=== PATIENT | female | born 1995 | race American Indian/Alaskan Native ===

== ENCOUNTER 2017-12-23 20:43 | Emergency (ER) | payer MEDICAID, OTHER ==
[2017-12-23 20:43] VITALS: BMI 52.9
[2017-12-23 20:55] VITALS: BP 138/83; RESP 20; O2SAT 100
[2017-12-23] MEDS ORDERED: Clindamycin 300 MG in Sodium Chloride 0.9% 50 ML IVPB STA (21:24)
[2017-12-23] MEDS ORDERED: Lidocaine 2% w Epi 1:100,000 Inj IJ ONE ×2 (21:38→21:44)
[2017-12-23 22:05] LABS: VENOUS BLOOD GAS PCO2 50 mmHg (40-60); VENOUS BLOOD GAS PO2 29 mm/Hg (30-55)
[2017-12-23 22:10] LABS: BASO # 0.1 K/uL (0.0-0.2); BASO % 0.7 % (0.0-2.0); EOS % 0.2 % (0.0-4.0); HEMOGLOBIN 11.7 g/dL (12.0-16.0); LYMPH # 2.2 K/uL (1.0-4.3); LYMPH % 13.7 % (20.0-40.0); MEAN CELL VOLUME 78.5 fl (81.0-99.0); MEAN CORPUSCULAR HEMOGLOBIN 25.1 pg (27.0-31.0); MEAN PLATELET VOLUME 9.3 fl (7.2-11.7); MONO # 1.2 K/uL (0.0-0.8); MONO % 7.5 % (0.0-10.0); NEUT # 12.3 K/uL (1.8-7.0); NEUT % 77.9 % (50.0-75.0); NRBC % 0.1 % (0.0-0.0); RBC 4.66 Mil/uL (3.80-5.20); RED CELL DISTRIBUTION WIDTH 13.5 % (11.5-14.5); WHITE BLOOD COUNT 15.7 K/uL (4.8-10.8)
[2017-12-23 22:16] LABS: ALB/GLOB RATIO 1.1 (1.0-2.1); ALBUMIN 4.3 g/dL (3.5-5.0); ALT/SGPT 46 U/L (9-52); AST/SGOT 35 U/L (14-36); BLOOD UREA NITROGEN 11 mg/dl (7-17); CALCIUM 8.9 mg/dL (8.4-10.2); GFR AFRICAN-AMERICAN > 60; GFR NON-AFRICAN AMERICAN > 60
[2017-12-23] MEDS ORDERED: Povidone Iodine Oint 10% Foilpak UD ONE (23:13)
--- NOTE | 2017-12-23 23:14 | ED PDOC ---
HPI: Skin/Bite Injury Time Seen by Provider: 12/23/17 20:59 Chief Complaint (Nursing): Abnormal Skin Integrity Chief Complaint (Provider): Abnormal Skin Integrity History Per: Patient History/Exam Limitations: no limitations Onset/Duration Of Symptoms: Days (x7) Current Symptoms Are (Timing): Still Present Additional Complaint(s): 22 y/o female presents to the ED complaining of a painful bump on the right mid- back, onset about one week ago. Patient also reports of a fever, onset today. Otherwise: (-) foreign body, (-) fever, (-) chills, (-) recent antibiotic use, (-) trauma, (-) injury, (-) urinary symptoms, (-) nausea, (-) vomiting, (-) other complaints. PMD: Blane Monterroso Past Medical History Reviewed: Historical Data, Nursing Documentation, Vital Signs Vital Signs: Last Vital Signs Temp 99.7 F H 12/24/17 00:00 Pulse 105 H 12/24/17 00:00 Resp 20 12/23/17 20:52 BP 138/83 12/23/17 20:52 Pulse Ox 100 12/23/17 23:35 - Medical History PMH: Asthma, Sleep Apnea Denies: Chronic Kidney Disease - Surgical History Surgical History: No Surg Hx - Family History Family History: States: Unknown Family Hx - Immunization History Hx Tetanus Toxoid Vaccination: No Hx Influenza Vaccination: No Hx Pneumococcal Vaccination: No - Home Medications Home Medications: Ambulatory Orders Medication Instructions Recorded Amoxicillin/Clavulanate [Augmentin 1 tab PO BID #14 tab 03/19/16 875 MG-125 MG] Clindamycin [Cleocin] 300 mg PO TID #30 cap 12/23/17 Ibuprofen [Motrin Tab] 600 mg PO QID PRN #20 tab 12/23/17 - Allergies Allergies/Adverse Reactions: Allergies Allergy/AdvReac Type Severity Reaction Status Date / Time No Known Allergies Allergy Verified 03/19/16 18:19 Review of Systems ROS Statement: Except As Marked, All Systems Reviewed And Found Negative Skin: Positive for: Other (painful bump on right mid-back) Physical Exam - Reviewed Nursing Documentation Reviewed: Yes Vital Signs Reviewed: Yes - Physical Exam Comments: GENERAL APPEARANCE: Patient is awake, alert, oriented x 3, in mild painful distress. Skin: warm and dry, (+) 4 x 4 cm erythmatous, tender, fluctuant abscess to the R mid back with surrounding cellulitis. Pulmonary: lungs clear, no rhonchi, no wheezing. Cardiac: regular rate and rhythm, no murmur, no gallop. Abdomen: soft, nontender. Extremities: no deformity, full range of motion, no tenderness. - Laboratory Results Result Diagrams: 12/23/17 21:55 12/23/17 21:55 - ECG O2 Sat by Pulse Oximetry: 100 (RA) Pulse Ox Interpretation: Normal Medical Decision Making Medical Decision Making: Time: 2200 Plan: -- Venous Blood Gas -- CMP -- CBC with differentials -- Cleocin 300 mg IV -- Toradol 30 mg IVP -- Tylenol 975 mg PO -- Wound cx -- Blood Culture -- IV Insertion -- I & D Labs reviewed : wbc 15, lactate 1.4. I&D performed by AB. Patient tolerated the procedure well. On re-evaluation, remains AAOx3, in no acute distress, not toxic appearing, T 99.7. Patient feels comfortable going home. Advised to follow up with primary care physician after 2 days without fail for wound check and packing removal Advised to take medication as prescribed. Return to the emergency room at any time for any new or worsening symptoms. Patient states she fully agrees with and understands discharge instructions. States that she agrees with the plan and disposition. Verbalized and repeated discharge instructions and plan. I have given the patient opportunity to ask any additional questions Scribe Attestation: Documented by Faisal Epps acting as a scribe for Linnette Santana PA-C. Provider Scribe Attestation: All medical record entries made by the Scribe were at my direction and personally dictated by me. I have reviewed the chart and agree that the record accurately reflects my personal performance of the history, physical exam, medical decision making, and the department course for this patient. I have also personally directed, reviewed, and agree with the discharge instructions and disposition. Disposition - Clinical Impression Clinical Impression: Abscess or cellulitis of back - Patient ED Disposition Is Patient to be Admitted: No Counseled Patient/Family Regarding: Studies Performed, Diagnosis, Need For Followup, Rx Given - Disposition Disposition: Routine/Home Disposition Time: 23:30 Condition: STABLE Additional Instructions: Thank you for letting us take care of you today. You were treated for abscess with cellulitis. The emergency medical care you received today was directed towards the acute presenting symptoms. If you were prescribed any medication, please fill it and give as directed. It may take several days for your symptoms to resolve. Return to the Emergency Department at any time if symptoms worsen, do not improve, or if any other problems arise. Please contact your doctor in 2 days for re-evaluation and follow up. Bring any paperwork you were given at discharge with you along with any medications to your follow up visit. Our treatment cannot replace ongoing medical care by a primary care provider (PCP) outside of the emergency department. Thank you for allowing the [facility] team to be part of your care today. 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 Procedures - Incision and Drainage Site: R mid back Blade Size: 11 I & D Procedure: betadine prep, sterile drapes applied, sterile dressing applied Progress: 20 cc's of purulent material expressed from abscess, wound packing inserted. Clean dressing applied. Patient tolerated the procedure well.
[2017-12-24 00:19] VITALS: PULSE 105; TEMP 99.7
== END 2017-12-24 00:05 | disposition home or self-care (01) ==
LOC: H.ER 20:43
DX: L02.212 Cutaneous abscess of back [any part, except buttock and flank] (principal)
CPT/HCPCS: 10060; 80053; 81025; 82803; 85025; 87040; 87070; 87181; 96374; 99283; J1885

== ENCOUNTER 2017-12-25 17:36 | Inpatient (IN) | payer OTHER ==
[2017-12-25 17:36] VITALS: BMI 52.9
[2017-12-25] MEDS ORDERED: Sodium Chloride 0.9% 1,000 ML IV STA (18:33)
[2017-12-25 19:11] LABS: BASO # 0.1 K/uL (0.0-0.2); BASO % 0.8 % (0.0-2.0); EOS # 0.1 K/uL (0.0-0.7); EOS % 1.6 % (0.0-4.0); HEMOGLOBIN 11.6 g/dL (12.0-16.0); LYMPH # 2.3 K/uL (1.0-4.3); MEAN CELL VOLUME 78.8 fl (81.0-99.0); MEAN CORPUSCULAR HEMOGLOBIN 25.4 pg (27.0-31.0); MEAN CORPUSCULAR HGB CONC 32.3 g/dL (33.0-37.0); MEAN PLATELET VOLUME 9.1 fl (7.2-11.7); MONO # 0.9 K/uL (0.0-0.8); MONO % 9.9 % (0.0-10.0); NEUT # 5.8 K/uL (1.8-7.0); NEUT % 62.7 % (50.0-75.0); RBC 4.58 Mil/uL (3.80-5.20); RED CELL DISTRIBUTION WIDTH 13.7 % (11.5-14.5); WHITE BLOOD COUNT 9.2 K/uL (4.8-10.8)
--- NOTE | 2017-12-25 19:12 | ED PDOC ---
Syncope/Near Syncope/Dizziness Time Seen by Provider: 12/25/17 18:19 Chief Complaint (Nursing): Syncope Chief Complaint (Provider): i passed out History Per: Patient History/Exam Limitations: no limitations Onset/Duration Of Symptoms: Hrs (2) Associated Symptoms Preceding Syncopal Episode: Lightheadedness Seizure Or Post-ictal Symptoms: None Fall Associated With With Symptoms: No Severity: Mild Additional Complaint(s): 22yo female c/o episode of passing out around 330p today, has felt dizzy and tactile fever today, had I&D of R back abscess 2 days ago, taking clindamycin. States still having pain and drainage from wound, packed. Denies Chest pain, SOB , abd pain, or vomiting. Past Medical History Reviewed: Historical Data, Nursing Documentation, Vital Signs Vital Signs: Last Vital Signs Temp 99.4 F 12/25/17 19:04 Pulse 87 12/25/17 17:57 Resp 20 12/25/17 17:57 BP 135/88 12/25/17 17:57 Pulse Ox 100 12/25/17 17:57 - Medical History PMH: Asthma, Sleep Apnea Denies: Chronic Kidney Disease Other PMH: obesity - Family History Family History: States: Unknown Family Hx - Living Arrangements Living Arrangements: With Family - Social History Current smoker - smoking cessation education provided: No - Immunization History Hx Tetanus Toxoid Vaccination: No Hx Influenza Vaccination: No Hx Pneumococcal Vaccination: No - Home Medications Home Medications: Ambulatory Orders Medication Instructions Recorded Amoxicillin/Clavulanate [Augmentin 1 tab PO BID #14 tab 03/19/16 875 MG-125 MG] Clindamycin [Cleocin] 300 mg PO TID #30 cap 12/23/17 Ibuprofen [Motrin Tab] 600 mg PO QID PRN #20 tab 12/23/17 - Allergies Allergies/Adverse Reactions: Allergies Allergy/AdvReac Type Severity Reaction Status Date / Time No Known Allergies Allergy Verified 12/25/17 17:57 Review of Systems Constitutional: Positive for: Chills ENT: Negative for: Nose Discharge Cardiovascular: Positive for: Light Headedness. Negative for: Chest Pain, Palpitations, Orthopnea Respiratory: Negative for: Cough, Shortness of Breath Gastrointestinal: Negative for: Nausea Musculoskeletal: Positive for: Back Pain. Negative for: Neck Pain, Shoulder Pain, Arm Pain Skin: Negative for: Rash, Lesions Neurological: Positive for: Weakness, Dizziness. Negative for: Numbness Psych: Negative for: Depression Physical Exam - Reviewed Nursing Documentation Reviewed: Yes Vital Signs Reviewed: Yes - Physical Exam Appears: Positive for: Well (obese), Non-toxic Head Exam: Positive for: ATRAUMATIC, NORMAL INSPECTION, NORMOCEPHALIC Skin: Positive for: Normal Color, Warm, DRY Eye Exam: Positive for: EOMI, Normal appearance, PERRL ENT: Positive for: Normal ENT Inspection Neck: Positive for: Normal, Painless ROM Cardiovascular/Chest: Positive for: Regular Rate, Rhythm Respiratory: Positive for: CNT, Normal Breath Sounds Gastrointestinal/Abdominal: Positive for: Soft, Tenderness (R back abscess packing in place +induration and erythema) Back: Positive for: Normal Inspection Extremity: Positive for: Normal ROM Neurologic/Psych: Positive for: Alert, Oriented - Laboratory Results Result Diagrams: 12/25/17 18:58 - ECG O2 Sat by Pulse Oximetry: 100 Medical Decision Making Medical Decision Making: workup for syncope with recent abscess I&D check labs, EKG, CT abd pelv to examine soft tissue abscess IVF bolus, court recording monitor, rectal temp cultures from 2 days ago reviewed, wound +Gm neg bacilli, blood cx negative Disposition - Clinical Impression Clinical Impression: Abscess, Syncope - Patient ED Disposition Is Patient to be Admitted: Transfer of Care - Disposition Disposition: Transfer of Care Disposition Time: 19:15 Condition: STABLE Forms: [employer] (Lao) Patient Signed Over To: James Carney Handoff Comments: pending labs, CT and dispo
--- NOTE | 2017-12-25 19:30 | ED PDOC ---
- Laboratory Results Result Diagrams: 12/25/17 18:58 12/25/17 18:58 - ECG O2 Sat by Pulse Oximetry: 100 Medical Decision Making Medical Decision Making: Time: 1899 --Patient is endorsed to provider by Dr. Pierre, pending lab and CT ABD/pelvis results. Time: 2038 --CT ABD/pelvis FINDINGS: Lung bases: Unremarkable. No mass. No consolidation. ABDOMEN: Liver: Unremarkable. No mass. Gallbladder and bile ducts: Unremarkable. No calcified stones. No ductal dilation. Pancreas: Unremarkable. No mass. No ductal dilation. Spleen: Unremarkable. No splenomegaly. Adrenals: Unremarkable. No mass. Kidneys and ureters: Unremarkable. No solid mass. No hydronephrosis. Stomach and bowel: Unremarkable. No obstruction. No mucosal thickening. PELVIS: Appendix: Normal appendix. Bladder: Unremarkable. No mass. Reproductive: Unremarkable as visualized. ABDOMEN and PELVIS: Intraperitoneal space: Unremarkable. No free air. No significant fluid collection. Bones/joints: No acute fracture. No dislocation. Soft tissues: Gas and information in the subcutaneous fat of the right flank. This measures approximately 3 cm in diameter. There is overlying skin thickening. Vasculature: Unremarkable. No abdominal aortic aneurysm. Lymph nodes: Scattered mesenteric and right lower quadrant lymph nodes which are within normal limits in size. IMPRESSION: Gas and information in the subcutaneous fat of the right flank. This measures approximately 3 cm in diameter. There is overlying skin thickening. Findings consistent with an abscess which is probably drained given the lack of a fluid filled cavity. ---- Time: 2113 --Upon re-evaluation, patient will be admitted given syncopal episodes in known setting of recent right flank abscess. In provider's opinion, near syncopal event in setting of gram negative rods seen in wound culture indicate patient requires IV Abx. Initial doses of IV Vanco and Gentamicin ordered. Case was discussed with Dr. Greenfield, covering for Dr. Monterroso. Patient made aware of results and agrees to plan. Clinical Impression: Right flank abscess Scribe Attestation: Documented by Karlie Sharif, acting as a scribe for James Carney MD. Provider Scribe Attestation: All medical record entries made by the Scribe were at my direction and personally dictated by me. I have reviewed the chart and agree that the record accurately reflects my personal performance of the history, physical exam, medical decision making, and the department course for this patient. I have also personally directed, reviewed, and agree with the discharge instructions and disposition Disposition Discussed With DrEsteban: Danyell Greenfield Counseled Patient/Family Regarding: Studies Performed, Diagnosis - Clinical Impression Clinical Impression: Abscess, Syncope - POA Present On Arrival: None - Disposition Disposition: Admitted as In-Patient Disposition Time: 20:00 Condition: STABLE
[2017-12-25] MEDS ORDERED: Gentamicin 100mg/100ml NS 100 MG/100 ML BAG IVPB STA (19:38)
[2017-12-25] MEDS ORDERED: Vancomycin 1 GM in Sodium Chloride 0.9% 100 ML IVPB STA (19:39)
[2017-12-25 19:51] LABS: ALB/GLOB RATIO 1.1 (1.0-2.1); ALBUMIN 4.1 g/dL (3.5-5.0); ALT/SGPT 55 U/L (9-52); AST/SGOT 44 U/L (14-36); BLOOD UREA NITROGEN 10 mg/dl (7-17); GFR NON-AFRICAN AMERICAN > 60
[2017-12-25] MEDS ORDERED: Sodium Chloride 0.9% 50 ML IV ONE (19:54)
[2017-12-25] MEDS ORDERED: Iohexol 300 100 ML IJ ONE (19:54)
[2017-12-25] MEDS ORDERED: Vancomycin 1 g Inj ONE (19:59)
[2017-12-26] MEDS ORDERED: Vancomycin 1 g Inj IVPB SCH (09:00)
[2017-12-26] MEDS: Enoxaparin 40 mg Syringe SC SCH (09:16)
--- NOTE | 2017-12-26 12:27 | CP.PCM.PCO ---
Assessment/Plan - Assessment/Plan Assessment (Free Text): Pt stable in bed, no acute distress. Patient reports she was in [facility] ED last Sunday for an abscess to her right flank area. States the abscess was drained and she was given oral antibiotics. Pt reports she was supposed to f/u with her PMD today to remove packing from wound but states she "fainted" yesterday and so decided to come to ED instead. Dressing to R flank noted to be soiled with old brownish drainage. Area surrounding the wound looks clean, no erythema noted. Packing removed, clean dry dressing applied. Dr. Greenfield made aware, surgery and ID consulted for further management.
--- NOTE | 2017-12-26 12:52 | CT ---
Date of service: 12/25/2017 PROCEDURE: CT Abdomen and Pelvis with contrast HISTORY: abscess R thoracic back, syncope COMPARISON: None. TECHNIQUE: Contrast dose: 100 mL Omnipaque 300 Radiation dose: Total exam DLP = 948 mGy-cm. This CT exam was performed using one or more of the following dose reduction techniques: Automated exposure control, adjustment of the mA and/or kV according to patient size, and/or use of iterative reconstruction technique. FINDINGS: LOWER THORAX: Unremarkable LIVER: Unremarkable. No gross lesion or ductal dilatation. GALLBLADDER AND BILE DUCTS: Unremarkable. PANCREAS: Unremarkable. No gross lesion or ductal dilatation. SPLEEN: Unremarkable. ADRENALS: Unremarkable. No mass. KIDNEYS AND URETERS: Unremarkable. No hydronephrosis. No solid mass. VASCULATURE: Unremarkable. No aortic aneurysm. BOWEL: Moderate stool retention. . No obstruction. No gross mural thickening. APPENDIX: No inflamed appendix is appreciated. No pericecal inflammatory changes are noted. A portion of the appendix is bleed identified and unremarkable in appearance PERITONEUM: Unremarkable. No free fluid. No free air. LYMPH NODES: Unremarkable. No enlarged lymph nodes. BLADDER: Unremarkable. REPRODUCTIVE: Bilateral adnexal hypodensities bleed most likely representing bilateral RA and physiological follicular cystic changes that on the left are slightly more pronounced these on the right. BONES: No acute fracture. Transitional elements at the right lumbosacral level suggested OTHER FINDINGS: -developmental variant. In the right posterior upper flank location the level of the hemidiaphragms and or just below that there is right post rolled lateral diffuse skin thickening in hyperdensity and deep to the skin thickening there is a Morpheus reticulation of the subcutaneous fat with sub mm coalescent gas surrounded by a a more cyst a amorphous subcutaneous inflammatory changes. A of spontaneous drained abscess and/or are concomitant panniculitis here and cellulitis or are compatible with this. This time no discrete drainable fluid like abscess is seen. This a amorphous subcutaneous areas estimated to be a between 3 and 4 cm in maximum width. No extension to the posterior right musculature is suggested. IMPRESSION: Right posterior upper flank skin thickening with subjacent subcutaneous inflammatory changes as referenced above. These findings may have represented a prior drained abscess with without panniculitis here and overlying cellulitis. Currently, no drainable fluid like collection suggested. Concordant results (preliminary interpretation) provided by [employer].
--- NOTE | 2017-12-26 13:25 | CP.PCM.CON ---
History of Present Illness - History of Present Illness History of Present Illness: General Surgery - Dr Ann 22yo F w/ right flank abscess s/p I&D in the ER 2 days ago, returned to ED today after episode of dizziness and pre-syncope while on her way to her PMD for packing removal. Pt states she was just not feeling right so decided to come to the ER instead. She underwent a CT abdomen/pelvis which showed cellulitis and no further drainable collection. Packing was removed by nurse practitioner on the floor. Pt states most of her pain in the R flank is improved but she still has some mild pain when palpated. She denies any nausea/ vomiting, fevers/chills. She was discharged home from the ER and continued Clindamycin as she was prescribed. Pt states this is the first time she's ever had an abscess. PMH: Asthma PSH: I&D R flank abscess All: Lactose Past Patient History - Infectious Disease Hx of Infectious Diseases: None - Past Medical History & Family History Past Medical History?: Yes - Past Social History Smoking Status: Never Smoked - CARDIAC Hx Cardiac Disorders: No - PULMONARY Hx Asthma: Yes Hx Sleep Apnea: Yes - NEUROLOGICAL Hx Neurological Disorder: No - HEENT Hx HEENT Problems: No - RENAL Hx Chronic Kidney Disease: No - ENDOCRINE/METABOLIC Hx Endocrine Disorders: No - HEMATOLOGICAL/ONCOLOGICAL Hx Blood Disorders: No - INTEGUMENTARY Hx Dermatological Problems: No - MUSCULOSKELETAL/RHEUMATOLOGICAL Hx Musculoskeletal Disorders: No Hx Falls: Yes - GASTROINTESTINAL Hx Gastrointestinal Disorders: No - GENITOURINARY/GYNECOLOGICAL Hx Genitourinary Disorders: No - PSYCHIATRIC Hx Psychophysiologic Disorder: No Hx Substance Use: No - SURGICAL HISTORY Hx Surgeries: No - ANESTHESIA Hx Anesthesia: No Meds Allergies/Adverse Reactions: Allergies Allergy/AdvReac Type Severity Reaction Status Date / Time lactose AdvReac Mild DIARRHEA Verified 12/26/17 12:54 - Medications Medications: Current Medications Enoxaparin Sodium (Lovenox) 40 mg SC DAILY YENNY PRN Reason: Protocol Last Admin: 12/26/17 09:16 Dose: 40 mg Ceftriaxone Sodium 1 gm/ (Sodium Chloride) 100 mls @ 100 mls/hr IVPB DAILY YENNY PRN Reason: Protocol Vancomycin HCl 1 gm/ Sodium (Chloride) 250 mls @ 166.667 mls/hr IVPB Q12 YENNY PRN Reason: Protocol Ketorolac Tromethamine (Toradol) 15 mg IVP Q6 PRN PRN Reason: Pain, moderate (4-7) Last Admin: 12/26/17 12:22 Dose: 15 mg Physical Exam - Constitutional Appears: Well, No Acute Distress - Head Exam Head Exam: ATRAUMATIC, NORMAL INSPECTION, NORMOCEPHALIC - Eye Exam Eye Exam: Normal appearance - Respiratory Exam Respiratory Exam: NORMAL BREATHING PATTERN. absent: Respiratory Distress - Cardiovascular Exam Cardiovascular Exam: REGULAR RHYTHM - GI/Abdominal Exam GI & Abdominal Exam: Soft. absent: Distended, Tenderness - Back Exam Additional comments: Right flank incision s/p I&D of abscess with induration, minimal erythema, some bloody drainage, no purulent drainage - Neurological Exam Neurological exam: Alert, Oriented x3 - Psychiatric Exam Psychiatric exam: Normal Affect, Normal Mood - Skin Skin Exam: Dry, Intact Results - Vital Signs Recent Vital Signs: Last Vital Signs Temp 98.8 F 12/26/17 08:33 Pulse 73 12/26/17 08:33 Resp 20 12/26/17 08:33 BP 127/85 12/26/17 08:33 Pulse Ox 99 12/26/17 08:33 - Labs Result Diagrams: 12/25/17 18:58 12/25/17 18:58 Labs: Laboratory Results - last 24 hr 12/25/17 12/25/17 18:58 18:58 WBC 9.2 RBC 4.58 Hgb 11.6 L Hct 36.1 MCV 78.8 L MCH 25.4 L MCHC 32.3 L RDW 13.7 Plt Count 275 MPV 9.1 Neut % (Auto) 62.7 Lymph % (Auto) 25.0 [place] % (Auto) 9.9 Eos % (Auto) 1.6 Baso % (Auto) 0.8 Neut # (Auto) 5.8 Lymph # (Auto) 2.3 [place] # (Auto) 0.9 H Eos # (Auto) 0.1 Baso # (Auto) 0.1 Sodium 142 Potassium 4.4 Chloride 106 Carbon Dioxide 25 Anion Gap 15 BUN 10 Creatinine 0.7 Est GFR ( Amer) > 60 Est GFR (Non-Af Amer) > 60 Random Glucose 95 Calcium 9.0 Total Bilirubin 0.5 AST 44 H D ALT 55 H Alkaline Phosphatase 58 Troponin I < 0.0120 Total Protein 7.9 Albumin 4.1 Globulin 3.8 Albumin/Globulin Ratio 1.1 Assessment & Plan - Assessment and Plan (Free Text) Assessment: 22yo F w/ R flank abscess s/p I&D on 12/23 -Packing removed, does not require further packing -Continue Abx as per ID -No surgical intervention needed -Pt discussed with Dr. Marissa Mason PGY4
--- NOTE | 2017-12-26 13:29 | CARD ---
APPROVED REPORT Date of service: 12/25/2017 EKG Measurement Heart [id number] <Conclusion> Normal sinus rhythm Moderate voltage criteria for LVH, may be normal variant Cannot rule out Septal infarct, age undetermined Abnormal ECG
--- NOTE | 2017-12-26 17:13 | CP.PCM.PN ---
Subjective - Date & Time of Evaluation Date of Evaluation: 12/26/17 Objective - Vital Signs/Intake and Output Vital Signs (last 24 hours): Temp Pulse Resp BP Pulse Ox 99 F 68 18 112/75 98 12/26/17 16:34 12/26/17 16:34 12/26/17 16:34 12/26/17 16:34 12/26/17 16:34 - Medications Medications: Current Medications Enoxaparin Sodium (Lovenox) 40 mg SC DAILY YENNY PRN Reason: Protocol Last Admin: 12/26/17 09:16 Dose: 40 mg Vancomycin HCl 1 gm/ Sodium (Chloride) 250 mls @ 166.667 mls/hr IVPB Q12 YENNY PRN Reason: Protocol Ceftriaxone Sodium 2 gm/ (Sodium Chloride) 100 mls @ 100 mls/hr IVPB DAILY YENNY PRN Reason: Protocol Ketorolac Tromethamine (Toradol) 15 mg IVP Q6 PRN PRN Reason: Pain, moderate (4-7) Last Admin: 12/26/17 12:22 Dose: 15 mg - Labs Labs: 12/25/17 18:58 12/25/17 18:58
--- NOTE | 2017-12-27 04:46 | CON ---
DATE: 12/26/2017 INFECTIOUS DISEASE CONSULT HISTORY OF PRESENT ILLNESS: The patient is a 22-year-old female who came to the emergency room two days prior to this trip to the emergency room. She had an I and D done on her right flank abscess. She returned yesterday after an episode of dizziness and presyncope, and she was on her way to her primary care physician for removal of the packing. She states that she was not feeling well, and she came to the ER instead. She underwent a CT of the abdomen and pelvis, which showed cellulitis and no further drainable collection. In the ER, she denied any nausea or vomiting, fever or chills. The patient is a morbidly obese female and states that this is the first time she had an abscess. She has NO history of hidradenitis suppurativa that she is aware of or that she could correspond to my questions regarding infections in axillary and inguinal areas and did once again state it was first time she had an abscess. PHYSICAL EXAMINATION: GENERAL: The patient is a pleasant female, alert, cooperative and oriented to time and place. HEENT: Within normal limits. NECK: Supple. LUNGS: Distant breath sounds, considering weight. ABDOMEN: Soft. Positive bowel sounds. ASSESSMENT AND PLAN: Has a pinpoint area, draining some serosanguineous fluid from the right flank. This was cultured on the hospital admission and found to be Proteus mirabilis. There is minimal erythema around the abscess, and there is some induration. The patient says she has minimal pain right now. At present time, I have reviewed the CT scan. We will continue the IV antibiotics of vancomycin and Rocephin and they are sensitive. Considering the size of the patient's 389 pounds, I have increased the Rocephin to 2 gm IV piggyback every 24 hours. Rodney Pelletier MD MTDTyrell
[2017-12-27 06:33] LABS: MEAN CELL VOLUME 78.6 fl (81.0-99.0); MEAN CORPUSCULAR HEMOGLOBIN 25.3 pg (27.0-31.0); MEAN CORPUSCULAR HGB CONC 32.2 g/dL (33.0-37.0); RBC 4.35 Mil/uL (3.80-5.20); RED CELL DISTRIBUTION WIDTH 13.8 % (11.5-14.5)
--- NOTE | 2017-12-27 07:55 | CP.PCM.PN ---
<Bernice Serrano - Last Filed: 12/27/17 07:53> Subjective - Date & Time of Evaluation Date of Evaluation: 12/27/17 Time of Evaluation: 07:53 - Subjective Subjective: General Surgery Dr. Ann Pt S&E @bedside. NAEO. pt has no complaints. pain improved. denies F/C, N/V. tolerating diet. Objective - Vital Signs/Intake and Output Vital Signs (last 24 hours): Temp Pulse Resp BP Pulse Ox 98.5 F 69 20 121/70 96 12/26/17 23:46 12/26/17 23:46 12/26/17 23:46 12/26/17 23:46 12/26/17 23:46 - Medications Medications: Current Medications Enoxaparin Sodium (Lovenox) 40 mg SC DAILY YENNY PRN Reason: Protocol Last Admin: 12/26/17 09:16 Dose: 40 mg Vancomycin HCl 1 gm/ Sodium (Chloride) 250 mls @ 166.667 mls/hr IVPB Q12 YENNY PRN Reason: Protocol Last Admin: 12/26/17 21:33 Dose: 166.667 mls/hr Ceftriaxone Sodium 2 gm/ (Sodium Chloride) 100 mls @ 100 mls/hr IVPB DAILY YENNY PRN Reason: Protocol Ketorolac Tromethamine (Toradol) 15 mg IVP Q6 PRN PRN Reason: Pain, moderate (4-7) Last Admin: 12/26/17 12:22 Dose: 15 mg - Labs Labs: 12/27/17 05:25 12/25/17 18:58 - Constitutional Appears: Non-toxic, No Acute Distress - Head Exam Head Exam: NORMAL INSPECTION - Eye Exam Eye Exam: Normal appearance - ENT Exam ENT Exam: Mucous Membranes Moist - Respiratory Exam Respiratory Exam: NORMAL BREATHING PATTERN. absent: Accessory Muscle Use, Respiratory Distress - Cardiovascular Exam Cardiovascular Exam: REGULAR RHYTHM. absent: Bradycardia, Tachycardia - GI/Abdominal Exam GI & Abdominal Exam: Soft. absent: Distended, Tenderness - Extremities Exam Extremities Exam: Normal Inspection - Back Exam Additional comments: flank incised abscess w/ serosanguinous drainage ~1cm diameter no fluctuance, induration. mild erythema - Neurological Exam Neurological Exam: Alert, Awake, Oriented x3 - Psychiatric Exam Psychiatric exam: Normal Affect, Normal Mood - Skin Skin Exam: Dry, Normal Color, Warm Assessment and Plan - Assessment and Plan (Free Text) Assessment: 22 y/o F w/ R flank abscess s/p drainage by ED on 12/21 - transition to PO abx - pain management - daily dressing changes + PRN - pt may shower - no surgical intervention - cleared for discharge pending evaluation by Dr. Ann Pt discussed w/ Dr. Marissa Serrano DO PGY3 <Renny Ann - Last Filed: 12/27/17 10:54> Subjective - Date & Time of Evaluation Time of Evaluation: 10:20 - Subjective Subjective: Patient was seen and examined at the bedside. Agree with resident's note above. Objective - Vital Signs/Intake and Output Vital Signs (last 24 hours): Temp Pulse Resp BP Pulse Ox 98.5 F 65 20 110/76 99 12/27/17 08:02 12/27/17 08:02 12/27/17 08:02 12/27/17 08:02 12/27/17 08:02 - Medications Medications: Current Medications Enoxaparin Sodium (Lovenox) 40 mg SC DAILY YENNY PRN Reason: Protocol Last Admin: 12/27/17 08:21 Dose: 40 mg Vancomycin HCl 1 gm/ Sodium (Chloride) 250 mls @ 166.667 mls/hr IVPB Q12 YENNY PRN Reason: Protocol Last Admin: 12/27/17 08:22 Dose: 166.667 mls/hr Ceftriaxone Sodium 2 gm/ (Sodium Chloride) 100 mls @ 100 mls/hr IVPB DAILY YENNY PRN Reason: Protocol Last Admin: 12/27/17 08:21 Dose: 100 mls/hr Ketorolac Tromethamine (Toradol) 15 mg IVP Q6 PRN PRN Reason: Pain, moderate (4-7) Last Admin: 12/26/17 12:22 Dose: 15 mg - Labs Labs: 12/27/17 05:25 12/25/17 18:58 Assessment and Plan - Assessment and Plan (Free Text) Plan: - No general surgery intervention at present time - General surgery will sign off - Please re-consult as needed
[2017-12-27] MEDS: cefTRIAXone 2 GM in Sodium Chloride 0.9% 100 ML IVPB SCH (08:21)
[2017-12-27] MEDS: Enoxaparin 40 mg Syringe SC SCH (08:21)
[2017-12-28] MEDS: cefTRIAXone 2 GM in Sodium Chloride 0.9% 100 ML IVPB SCH (08:39)
[2017-12-28] MEDS: Enoxaparin 40 mg Syringe SC SCH (08:39)
--- NOTE | 2017-12-28 09:22 | CP.PCM.HP ---
History of Present Illness - History of Present Illness History of Present Illness: A 22yo female c/o episode of passing out around 330p today, has felt dizzy and tactile fever today, had I&D of R back abscess 2 days ago, taking clindamycin. States still having pain and drainage from wound, packed. Denies Chest pain, SOB , abd pain, or vomiting. Surgery evaluated and recommended IV Abx. Present on Admission - Present on Admission Any Indicators Present on Admission: No Review of Systems - Review of Systems All systems: reviewed and no additional remarkable complaints except Past Patient History - Infectious Disease Hx of Infectious Diseases: None - Past Medical History & Family History Past Medical History?: Yes - Past Social History Smoking Status: Never Smoked - CARDIAC Hx Cardiac Disorders: No - PULMONARY Hx Asthma: Yes Hx Sleep Apnea: Yes - NEUROLOGICAL Hx Neurological Disorder: No - HEENT Hx HEENT Problems: No - RENAL Hx Chronic Kidney Disease: No - ENDOCRINE/METABOLIC Hx Endocrine Disorders: No - HEMATOLOGICAL/ONCOLOGICAL Hx Blood Disorders: No - INTEGUMENTARY Hx Dermatological Problems: No - MUSCULOSKELETAL/RHEUMATOLOGICAL Hx Musculoskeletal Disorders: No Hx Falls: Yes - GASTROINTESTINAL Hx Gastrointestinal Disorders: No - GENITOURINARY/GYNECOLOGICAL Hx Genitourinary Disorders: No - PSYCHIATRIC Hx Psychophysiologic Disorder: No Hx Substance Use: No - SURGICAL HISTORY Hx Surgeries: No - ANESTHESIA Hx Anesthesia: No Meds Allergies/Adverse Reactions: Allergies Allergy/AdvReac Type Severity Reaction Status Date / Time lactose AdvReac Mild DIARRHEA Verified 12/26/17 12:54 Physical Exam - Constitutional Appears: Well, No Acute Distress - Head Exam Head Exam: ATRAUMATIC, NORMAL INSPECTION, NORMOCEPHALIC - Eye Exam Eye Exam: EOMI, Normal appearance, PERRL Pupil Exam: NORMAL ACCOMODATION, PERRL - ENT Exam ENT Exam: Mucous Membranes Moist, Normal Exam - Neck Exam Neck exam: Positive for: Normal Inspection - Respiratory Exam Respiratory Exam: Clear to Auscultation Bilateral, NORMAL BREATHING PATTERN - Cardiovascular Exam Cardiovascular Exam: REGULAR RHYTHM, +S1, +S2 - GI/Abdominal Exam GI & Abdominal Exam: Normal Bowel Sounds, Soft, Tenderness Additional comments: Right Flank area I&D site. Culture takne from the wound - Extremities Exam Extremities exam: Positive for: normal inspection - Back Exam Back exam: NORMAL INSPECTION - Neurological Exam Neurological exam: Alert, CN II-XII Intact, Normal Gait, Oriented x3, Reflexes Normal - Psychiatric Exam Psychiatric exam: Normal Affect, Normal Mood - Skin Skin Exam: Dry, Intact, Normal Color, Warm Results - Vital Signs Recent Vital Signs: Last Vital Signs Temp 98.3 F 12/28/17 08:08 Pulse 62 12/28/17 08:08 Resp 20 12/28/17 08:08 BP 106/65 12/28/17 08:08 Pulse Ox 96 12/28/17 08:08 - Labs Result Diagrams: 12/27/17 05:25 12/25/17 18:58 - Imaging and Cardiology CT scan - abdomen Status: Report reviewed by me Additional comment: PROCEDURE: CT Abdomen and Pelvis with contrast HISTORY: abscess R thoracic back, syncope COMPARISON: None. TECHNIQUE: Contrast dose: 100 mL Omnipaque 300 Radiation dose: Total exam DLP = 948 mGy-cm. This CT exam was performed using one or more of the following dose reduction techniques: Automated exposure control, adjustment of the mA and/or kV according to patient size, and/or use of iterative reconstruction technique. FINDINGS: LOWER THORAX: Unremarkable LIVER: Unremarkable. No gross lesion or ductal dilatation. GALLBLADDER AND BILE DUCTS: Unremarkable. PANCREAS: Unremarkable. No gross lesion or ductal dilatation. SPLEEN: Unremarkable. ADRENALS: Unremarkable. No mass. KIDNEYS AND URETERS: Unremarkable. No hydronephrosis. No solid mass. VASCULATURE: Unremarkable. No aortic aneurysm. BOWEL: Moderate stool retention. . No obstruction. No gross mural thickening. APPENDIX: No inflamed appendix is appreciated. No pericecal inflammatory changes are noted. A portion of the appendix is bleed identified and unremarkable in appearance PERITONEUM: Unremarkable. No free fluid. No free air. LYMPH NODES: Unremarkable. No enlarged lymph nodes. BLADDER: Unremarkable. REPRODUCTIVE: Bilateral adnexal hypodensities bleed most likely representing bilateral RA and physiological follicular cystic changes that on the left are slightly more pronounced these on the right. BONES: No acute fracture. Transitional elements at the right lumbosacral level suggested OTHER FINDINGS: -developmental variant. In the right posterior upper flank location the level of the hemidiaphragms and or just below that there is right post rolled lateral diffuse skin thickening in hyperdensity and deep to the skin thickening there is a Morpheus reticulation of the subcutaneous fat with sub mm coalescent gas surrounded by a a more cyst a amorphous subcutaneous inflammatory changes. A of spontaneous drained abscess and/or are concomitant panniculitis here and cellulitis or are compatible with this. This time no discrete drainable fluid like abscess is seen. This a amorphous subcutaneous areas estimated to be a between 3 and 4 cm in maximum width. No extension to the posterior right musculature is suggested. IMPRESSION: Right posterior upper flank skin thickening with subjacent subcutaneous inflammatory changes as referenced above. These findings may have represented a prior drained abscess with without panniculitis here and overlying cellulitis. Currently, no drainable fluid like collection suggested. Concordant results (preliminary interpretation) provided by [facility]. Assessment & Plan (1) Abscess or cellulitis of back Assessment and Plan: IVF IV Vancomycin and Rocephin Pain Medication PRN Wound and Blood Culture Pending ID and surgery Onboard Status: Acute Priority: Medium
--- NOTE | 2017-12-28 09:23 | CP.PCM.PN ---
Subjective - Date & Time of Evaluation Date of Evaluation: 12/27/17 Time of Evaluation: 14:00 - Subjective Subjective: Wound Culture Grew Proteus which is pansensitive. Objective - Vital Signs/Intake and Output Vital Signs (last 24 hours): Temp Pulse Resp BP Pulse Ox 98.3 F 62 20 106/65 96 12/28/17 08:08 12/28/17 08:08 12/28/17 08:08 12/28/17 08:08 12/28/17 08:08 - Medications Medications: Current Medications Enoxaparin Sodium (Lovenox) 40 mg SC DAILY YENNY PRN Reason: Protocol Last Admin: 12/28/17 08:39 Dose: 40 mg Vancomycin HCl 1 gm/ Sodium (Chloride) 250 mls @ 166.667 mls/hr IVPB Q12 YENNY PRN Reason: Protocol Last Admin: 12/28/17 08:41 Dose: 166.667 mls/hr Ceftriaxone Sodium 2 gm/ (Sodium Chloride) 100 mls @ 100 mls/hr IVPB DAILY YENNY PRN Reason: Protocol Last Admin: 12/28/17 08:39 Dose: 100 mls/hr Ketorolac Tromethamine (Toradol) 15 mg IVP Q6 PRN PRN Reason: Pain, moderate (4-7) Last Admin: 12/26/17 12:22 Dose: 15 mg - Labs Labs: 12/27/17 05:25 12/25/17 18:58 Assessment and Plan (1) Abscess or cellulitis of back Assessment & Plan: IVF IV Vancomycin and Rocephin Pain Medication PRN Wound and Blood Culture Pending ID and surgery Onboard Status: Acute
--- NOTE | 2017-12-28 11:39 | CP.PCM.PCO ---
Assessment & Plan - Assessment and Plan (Free Text) Assessment: pt. doing well, denies fever, chills, n/v R flank abscess site scant serous drainage, no erythema or tenderness Pt. given rx for Bactrim DS 1 tab po q12 x 10 days as per recommendation instructed to f/u with pmd in 1 week and to return is fever, chills, increased drainage Above d/w Seman
[2017-12-28] MEDS ORDERED: Tmp-Smz 800 mg-160 mg DS Tab PO SCH (12:15)
[2017-12-28 15:57] VITALS: BP 128/70; PULSE 75; RESP 19; TEMP 98.2; O2SAT 95
--- NOTE | 2018-01-04 08:26 | PQF ---
PROVIDER RESPONSE TEXT: Morbid Obesity REVIEWER QUERY TEXT: Clarification of Clinical Diagnostic Findings In agreement with the BMI:52.8? as listed in the EMR OR: Disagree EMR: 6 ft 389lb 12/26 Draft ID consult: The patient is a morbidly obese female . The patient's Clinical Indicators include: xxxx Query created by: Kaylene Llamas on 12/28/2017 12:14 PM Electronically signed by: Danyell Greenfield MD 01/04/2018 8:23 AM
== END 2017-12-28 17:55 | disposition home or self-care (01) | DRG 278 ==
LOC: H.ER 17:36 → H.ERHOLD 21:08 → H.MEDSURG1 22:48
PROVIDERS: ADMIT Internal Medicine; ATTEND Internal Medicine
DX: L02.212 Cutaneous abscess of back [any part, except buttock and flank] (principal); L03.312 Cellulitis of back [any part except buttock and flank]; E66.01 Morbid (severe) obesity due to excess calories; Z68.43 Body mass index [BMI] 50.0-59.9, adult; Z98.890 Other specified postprocedural states; J45.909 Unspecified asthma, uncomplicated; G47.30 Sleep apnea, unspecified

== ENCOUNTER 2018-06-25 17:06 | Emergency (ER) | payer MEDICAID, OTHER ==
[2018-06-25 17:07] VITALS: BMI 52.9
[2018-06-25 17:43] VITALS: O2SAT 98
--- NOTE | 2018-06-25 18:16 | ED PDOC ---
HPI: Abdomen Time Seen by Provider: 06/25/18 17:50 Chief Complaint (Nursing): Abdominal Pain Chief Complaint (Provider): abdominal pain and umbilical drainage History Per: Patient History/Exam Limitations: no limitations Onset/Duration Of Symptoms: Days Outside of [place] travel?: No Associated Symptoms: Nausea, Diarrhea. denies: Fever, Chills, Vomiting, Loss Of Appetite Additional Complaint(s): 22 y/o F with hx of asthma who presents with abdominal pain and umbilical drainage. Patient states that 2 days ago she noted clear fluid coming from her belly button. She placed a tissue which she removed today but did not note any further drainage. She states that she began having crampy abdominal pain the same day. She had an episode of nause but no vomiting. Since then she has continued to have crampy abdominal pain but developed watery diarrhea. She has had at least 3 bouts of watery diarrhea per day. Denies dysuria, frequency, hesitancy, vomiting, fevers, chills, night sweats, vaginal bleeding or discharge. She has had some dizziness. She has been eating and drinking normally. Past Medical History Reviewed: Historical Data, Nursing Documentation, Vital Signs Vital Signs: Last Vital Signs Temp 98.4 F 06/25/18 17:40 Pulse 72 06/25/18 17:40 Resp 16 06/25/18 17:40 BP 123/73 06/25/18 17:40 Pulse Ox 98 06/25/18 17:40 - Medical History PMH: Asthma, Sleep Apnea Denies: Chronic Kidney Disease - Family History Family History: States: Unknown Family Hx - Immunization History Hx Tetanus Toxoid Vaccination: No Hx Influenza Vaccination: No Hx Pneumococcal Vaccination: No - Home Medications Home Medications: Ambulatory Orders Medication Instructions Recorded Lactobacillus Acidophilus [Bacid 1 cap PO BID #20 cap 12/28/17 Acidophilus] Sulfamethoxazole/Trimethoprim 1 tab PO Q12 #20 tab 12/28/17 [Bactrim DS 800 mg-160 mg] - Allergies Allergies/Adverse Reactions: Allergies Allergy/AdvReac Type Severity Reaction Status Date / Time lactose AdvReac Mild DIARRHEA Verified 06/25/18 17:39 Review of Systems Constitutional: Negative for: Fever, Chills Cardiovascular: Negative for: Chest Pain Respiratory: Negative for: Cough Gastrointestinal: Positive for: Nausea, Abdominal Pain, Diarrhea. Negative for: Vomiting Genitourinary Female: Negative for: Dysuria, Frequency Physical Exam - Reviewed Nursing Documentation Reviewed: Yes Vital Signs Reviewed: Yes - Physical Exam Appears: Positive for: Well Head Exam: Positive for: ATRAUMATIC Neck: Positive for: Normal Cardiovascular/Chest: Positive for: Regular Rate, Rhythm Respiratory: Positive for: Normal Breath Sounds Gastrointestinal/Abdominal: Positive for: Soft, Tenderness (periumbilical and LUQ tenderness), Other (umbilicus w/o any lesions or drainage noted). Negative for: Mass, Distended, Guarding, Rebound Lymphatic: Positive for: Normal Exam Neurologic/Psych: Positive for: Alert, Oriented - Laboratory Results Result Diagrams: 06/25/18 18:35 06/25/18 18:35 - ECG O2 Sat by Pulse Oximetry: 98 Medical Decision Making Medical Decision Making: CT abd/pelvis w/ IV contrast CBC, CMP Urine preg U/A U/A: Trace LE, nitrates negative, WBC 6K Urine culture ordered CBC: WNL 20:12 Abdomen/Pelvis CT FINDINGS: LUNG BASES: The lung bases appear clear. No pleural effusions are seen. LIVER: There is hepatomegaly. The liver measured approximately 17.5 cm in the midclavicular line. No hepatic mass was identified. GALLBLADDER AND BILE DUCTS: The gallbladder appears within normal limits. No radioopaque gallstones are seen. No biliary ductal dilatation is evident. PANCREAS: Unremarkable. SPLEEN: Unremarkable. ADRENAL GLANDS: Unremarkable. KIDNEYS, URETERS, AND BLADDER: The kidneys appear within normal limits. There is no hydronephrosis or hydroureter. No urinary calculi are seen. The urinary bladder is normal in size and configuration. STOMACH AND BOWEL: Unremarkable appearance of the stomach and bowel. No evidence of bowel obstruction. No evidence suggesting enteritis or colitis. APPENDIX: No evidence of acute appendicitis on CT examination. PERITONEUM: No free fluid. No free air. LYMPH NODES: No lymphadenopathy is evident. REPRODUCTIVE: Unremarkable as visualized. VASCULATURE: No evidence of abdominal aortic aneurysm. BONES: No aggressive appearing osseous lesion. No acute osseous pathology evident. IMPRESSION: 1. No acute intra-abdominal or pelvic abnormality. 2. Hepatomegaly. Patient informed of CT scan results and advised to f/u with primary care doctor for further evaluation of hepatomegaly. Disposition - Clinical Impression Clinical Impression: Abdominal cramps - Patient ED Disposition Is Patient to be Admitted: No Counseled Patient/Family Regarding: Studies Performed, Diagnosis, Need For Followup - Disposition Referrals: Blane Monterroso MD [Staff Provider] - Disposition: Routine/Home Disposition Time: 20:40 Condition: STABLE Additional Instructions: Return to ER if your abdominal pain worsens or if you are unable to tolerate fluids. F/u with your primary care doctor re: enlarged liver noted on your CT scan. Take Tylenol or Ibuprofen for any discomfort. Stay hydrated while having diarrhea. Instructions: Acute Abdomen (Belly Pain), Adult (DC) Forms: [employer] (Georgian) Print Language: LUX[place]GISH
[2018-06-25] MEDS ORDERED: Sodium Chloride 0.9% 50 ML IV ONE (18:36)
[2018-06-25] MEDS ORDERED: Iohexol 300 100 ML IJ ONE (18:36)
[2018-06-25 18:38] LABS: BASO # 0.1 K/uL (0.0-0.2); BASO % 0.7 % (0.0-2.0); EOS # 0.1 K/uL (0.0-0.7); EOS % 0.7 % (0.0-4.0); HEMOGLOBIN 12.5 g/dL (12.0-16.0); LYMPH # 2.8 K/uL (1.0-4.3); LYMPH % 27.9 % (20.0-40.0); MEAN CORPUSCULAR HEMOGLOBIN 25.4 pg (27.0-31.0); MEAN CORPUSCULAR HGB CONC 32.1 g/dL (33.0-37.0); MEAN PLATELET VOLUME 9.1 fl (7.2-11.7); MONO # 1.2 K/uL (0.0-0.8); NEUT # 5.9 K/uL (1.8-7.0); NEUT % 58.7 % (50.0-75.0); RBC 4.94 Mil/uL (3.80-5.20); RED CELL DISTRIBUTION WIDTH 14.1 % (11.5-14.5)
[2018-06-25 18:48] LABS: ALB/GLOB RATIO 1.2 (1.0-2.1); ALBUMIN 4.3 g/dL (3.5-5.0); ALT/SGPT 40 U/L (9-52); AST/SGOT 26 U/L (14-36); BLOOD UREA NITROGEN 12 mg/dl (7-17); CALCIUM 9.3 mg/dL (8.4-10.2); GFR NON-AFRICAN AMERICAN > 60
[2018-06-25 19:35] LABS: SQUAMOUS EPITHIAL 5 /hpf (0-5); URINE BACTERIA RARE (<OCC); URINE BILIRUBIN NEGATIVE (NEGATIVE); URINE BLOOD NEGATIVE (NEGATIVE); URINE CALCIUM OXALATE CRYSTALS RARE /hpf (<OCC); URINE CLARITY CLOUDY (Clear); URINE COLOR YELLOW (YELLOW); URINE GLUCOSE (UA) NEG (NEGATIVE); URINE LEUKOCYTE ESTERASE TRACE Leu/uL (Negative); URINE PROTEIN 30 mg/dL (NEGATIVE); URINE UROBILINOGEN 0.2-1.0 mg/dL (0.2-1.0)
[2018-06-25 21:51] VITALS: BP 124/68; PULSE 81; RESP 17; TEMP 98.2
--- NOTE | 2018-06-26 10:39 | CT ---
Date of service: 06/25/2018 PROCEDURE: CT Abdomen and Pelvis with contrast HISTORY: R/o appendicitis/colitis COMPARISON: CT scan of the abdomen pelvis dated 12/25/2017. TECHNIQUE: Contrast dose: 100 mL Omnipaque 300 Radiation dose: Total exam DLP = 931.48 mGy-cm. This CT exam was performed using one or more of the following dose reduction techniques: Automated exposure control, adjustment of the mA and/or kV according to patient size, and/or use of iterative reconstruction technique. FINDINGS: LOWER THORAX: Unremarkable. LIVER: Unremarkable. No gross lesion or ductal dilatation. GALLBLADDER AND BILE DUCTS: Unremarkable. PANCREAS: Unremarkable. No gross lesion or ductal dilatation. SPLEEN: Unremarkable. ADRENALS: Unremarkable. No mass. KIDNEYS AND URETERS: Unremarkable. No hydronephrosis. No solid mass. VASCULATURE: Unremarkable. No aortic aneurysm. No aortic atherosclerotic calcification or mural plaque present. BOWEL: Unremarkable. No obstruction. No gross mural thickening. APPENDIX: Normal appendix. PERITONEUM: Unremarkable. No free fluid. No free air. LYMPH NODES: Unremarkable. No enlarged lymph nodes. BLADDER: Unremarkable. REPRODUCTIVE: 3.0 cm right adnexal cyst. BONES: Junior sacralization of right L5. No acute fracture. OTHER FINDINGS: None. IMPRESSION: No acute abdominal pelvic pathology.
== END 2018-06-25 20:36 | disposition home or self-care (01) ==
LOC: H.ER 17:06
DX: R10.9 Unspecified abdominal pain (principal); J45.909 Unspecified asthma, uncomplicated
CPT/HCPCS: 74177; 80053; 81003; 81025; 85025; 87086; 99284; Q9967